=== PATIENT | male | born 1965 | race Caucasian/White ===

== ENCOUNTER 2020-11-02 14:56 | Emergency (ER) | payer OTHER ==
[~2020-11-02] VITALS: Ht 182.9 cm; Wt 102.1 kg
[~2020-11-02 14:56] MED LIST: ALLEGRA60 MG PO; ALTACE; ALTACE10 M1 PO; ASPIRIN EC81 M1 PO; CARDURA1 MG PO; CIPROFLOXACIN500 M3 PO; FEXOFENADINE; FISH OIL SOFTG1 EACH PO; FISHOIL; FLAGYL500 MG PO; FLEXERIL PO; IBUPROFEN 800800 M1 PO; KETOROLAC 0.5% E5 ML OPHTHALMIC; LATANOPROST2.5 ML OPHTHALMIC; LUMAGEN; PERCOCET 5-3251 EACH PO; PRED FORTE 1% EY5 M1 OPHTHALMIC; TEGRETOL XR200 MG PO; Tegretol
[2020-11-02] MEDS ORDERED: DICLOFENAC SODI75 MG PO (15:15)
[2020-11-02] MEDS ORDERED: LUMIGAN2.5 M1 OPHTHALMIC (15:16)
[2020-11-02] MEDS ORDERED: ALLER-TEC D 5-1 EACH PO (15:16)
[2020-11-02] MEDS ORDERED: CELEXA 20 MG TA20 MG PO (15:16)
[2020-11-02] MEDS ORDERED: CEPHALEXIN500 MG PO (15:44)
[2020-11-02 15:59] VITALS: BP 151/95
== END 2020-11-02 16:02 | disposition home or self-care (01) ==
LOC: M.ERS 14:56
DX: S61.412A Laceration without foreign body of left hand, initial encounter (principal); Z79.899 Other long term (current) drug therapy; Z79.82 Long term (current) use of aspirin; W26.0XXA Contact with knife, initial encounter; Y93.89 Activity, other specified; Y92.89 Other specified places as the place of occurrence of the external cause; Y99.9 Unspecified external cause status